=== PATIENT | male | born 1960 | race Caucasian/White ===

== ENCOUNTER 2017-04-17 15:32 | Emergency (ER) | payer BC, MEDICAID ==
--- NOTE | 2017-04-17 15:47 | EDM.PDOC ---
ED HPI GENERAL MEDICAL PROBLEM - General Chief Complaint: Neuro Symptoms/Deficits Stated Complaint: TINGLING FINGERTIP, R ARM NUMBNESS Time Seen by Provider: 04/17/17 15:36 - History of Present Illness INITIAL COMMENTS - FREE TEXT/NARRATIVE: 56-year-old male presents to the emergency room with right arm weakness. This started roughly an hour ago the patient got out of the shower noticed some tingling the tips of his right fingers this progressed to increasing weakness up his arm to the point that he can't do anything with his arm he thinks he has a little bit of right leg weakness. He had a headache but this went away the patient had some nausea and vomiting secondary to probable gastroenteritis viral etiology that improved Wednesday night. He has noticed a slight decrease in his speech. Otherwise he's been doing fairly well up until this point patient has multiple medical problems stemming from drinking too much and smoking too much he has advanced lung disease atherosclerotic cardiovascular disease congestive heart failure liver failure including cirrhosis and some sort of kidney disease. - Related Data Allergies Allergy/AdvReac Type Severity Reaction Status Date / Time amoxicillin Allergy Rash Verified 04/17/17 15:56 rosuvastatin calcium Allergy Numbness Verified 04/17/17 15:56 [From Crestor] spironolactone Allergy Rash Verified 04/17/17 15:57 Home Meds: Home Meds Albuterol Sulfate [Albuterol Sulfate HFA] 2 puff INH ASDIRECTED PRN 03/26/14 [ History] Allopurinol [Zyloprim] 300 mg PO DAILY 03/26/14 [History] Fluticasone/Salmeterol [Advair 250-50] 1 puff INH BID 03/26/14 [History] Sertraline [Zoloft] 100 mg PO DAILY 03/26/14 [History] busPIRone [Buspar] 10 mg PO BID 03/26/14 [History] Thiamine [Vitamin B-1] 100 mg PO DAILY #30 tablet 04/02/14 [Rx] Fluticasone/Salmeterol [Advair Diskus 250-50] 1 puff INH BID 12/13/15 [History] Furosemide [Lasix] 40 mg PO DAILY 12/13/15 [History] Aspirin [Lo-Dose Aspirin EC] 81 mg PO DAILY 04/17/17 [History] Eplerenone. 25 mg PO DAILY 04/17/17 [History] Folic Acid 1 mg PO DAILY 04/17/17 [History] Iron Slow Release. 45 mg PO DAILY 04/17/17 [History] Lactulose. 15 ml PO BID 04/17/17 [History] Pantoprazole Sodium 40 mg PO DAILY 04/17/17 [History] Rifaximin [Xifaxan] 550 mg PO BID 04/17/17 [History] Sertraline [Zoloft] 50 mg PO BEDTIME 04/17/17 [History] Past Medical History HEENT History: Reports: Impaired Vision Other HEENT History: wears glasses Cardiovascular History: Reports: Heart Failure, High Cholesterol, Hypertension Respiratory History: Reports: Asthma, COPD Genitourinary History: Reports: Other (See Below) Other Genitourinary History: has one kidney working-right one Musculoskeletal History: Reports: Back Pain, Chronic, Other (See Below) Other Musculoskeletal History: arhtiritis Psychiatric History: Reports: Anxiety, Depression Hematologic History: Reports: Hemochromatosis - Past Surgical History HEENT Surgical History: Reports: Oral Surgery Cardiovascular Surgical History: Reports: Coronary Artery Stent GI Surgical History: Reports: Colonoscopy, Hernia Repair/Other Musculoskeletal Surgical History: Reports: Other (See Below) Social & Family History - Tobacco Use Smoking Status *Q: Former Smoker Years of Tobacco use: 30 Used Tobacco, but Quit: Yes Month Tobacco Last Used: 4 Second Hand Smoke Exposure: No - Alcohol Use Days Per Week of Alcohol Use: 7 Number of Drinks Per Day: 3 Total Drinks Per Week: 21 - Recreational Drug Use Recreational Drug Use: No ED ROS GENERAL - Review of Systems Review Of Systems: See Below Constitutional: Reports: Weakness HEENT: Reports: No Symptoms Respiratory: Reports: Other (No acute changes she has chronic lung disease chronic cough and shortness of breath) Cardiovascular: Reports: Blood Pressure Problem, Dyspnea on Exertion. Denies: Chest Pain, Palpitations Endocrine: Reports: Other (Low testosterone) GI/Abdominal: Reports: No Symptoms. Denies: Abdominal Pain, Constipation, Diarrhea, Nausea, Vomiting : Reports: No Symptoms Musculoskeletal: Reports: No Symptoms Skin: Reports: No Symptoms Neurological: Reports: Headache, Numbness, Tingling, Difficulty Walking, Weakness. Denies: Seizure, Syncope Psychiatric: Reports: No Symptoms Hematologic/Lymphatic: Reports: No Symptoms Immunologic: Reports: No Symptoms ED EXAM, NEURO - Physical Exam Exam: See Below Exam Limited By: No Limitations General Appearance: Alert, No Apparent Distress Ears: Normal External Exam, Normal Canal, Hearing Grossly Normal, Normal TMs Nose: Normal Inspection, Normal Mucosa Throat/Mouth: Normal Inspection, Normal Oropharynx, No Airway Compromise Head Exam: Atraumatic, Normocephalic Neck: Normal Inspection, Supple, Non-Tender, Full Range of Motion. No: Lymphadenopathy (L), Lymphadenopathy (R) Respiratory/Chest: No Respiratory Distress, Normal Breath Sounds, No Accessory Muscle Use, Chest Non-Tender, Decreased Breath Sounds GI/Abdominal: Normal Bowel Sounds, Soft, Non-Tender Extremities: Other (Patient has marked weakness in his right arm he can lift it up a little bit but I think this is thoracic muscles taking over no bag maker strength at all his hand left side is normal lower extremity exam initially showed some diminished strength but this was very subtle and his right lower leg at the time of my last examination this was more pronounced but he can still lift his leg up against gravity.) Psychiatric: Normal Affect, Normal Mood Skin Exam: Warm, Dry, Intact Course - Vital Signs Last Recorded V/S: Last Vital Signs Temp 38.0 C 04/17/17 15:57 Pulse 106 H 04/17/17 16:36 Resp 18 04/17/17 15:57 BP 151/96 H 04/17/17 16:36 Pulse Ox 92 L 04/17/17 15:57 - Orders/Labs/Meds Orders: Active Orders 24 hr Category Date Time Status EKG Documentation Completion [RC] STAT Care 04/17/17 15:48 Active Chest 1V Frontal [CR] Stat Exams 04/17/17 15:48 Taken Head wo Cont [CT] Stat Exams 04/17/17 15:49 Taken Labs: Laboratory Tests 04/17/17 04/17/17 04/17/17 Range/Units 15:41 15:55 15:55 WBC 7.05 (4.23-9.07) K/mm3 RBC 5.36 (4.63-6.08) M/mm3 Hgb 15.0 (13.7-17.5) gm/L Hct 45.7 (40.1-51.0) % MCV 85.3 (79.0-92.2) fl MCH 28.0 (25.7-32.2) pg MCHC 32.8 (32.2-35.5) g/dl RDW Std Deviation 55.3 H (35.1-43.9) fL Plt Count 84 L (163-337) K/mm3 MPV 10.7 (9.4-12.3) fl Neutrophils % (Manual) 74 H (40-60) % Band Neutrophils % 1 (0-10) % Lymphocytes % (Manual) 16 L (20-40) % Atypical Lymphs % 0 % Monocytes % (Manual) 7 (2-10) % Eosinophils % (Manual) 1 (0.8-7.0) % Basophils % (Manual) 1 (0.2-1.2) Platelet Estimate See note RBC Morph Comment Normal PT 12.9 (8.0-13.0) SECONDS INR 1.17 APTT 31 (22-36) SECONDS Sodium (136-145) mEq/L Potassium (3.5-5.1) mEq/L Chloride (98-107) mEq/L Carbon Dioxide (21-32) mEq/L Anion Gap (5-15) BUN (7-18) mg/dL Creatinine (0.7-1.3) mg/dL Est Cr Clr Drug Dosing mL/min Estimated GFR (MDRD) (>60) mL/min BUN/Creatinine Ratio (14-18) Glucose (74-106) mg/dL POC Glucose 98 (70-105) mg/dL Calcium (8.5-10.1) mg/dL Total Bilirubin (0.2-1.0) mg/dL AST (15-37) U/L ALT (16-63) U/L Alkaline Phosphatase (46-116) U/L Ammonia (11-32) umol/L Troponin I (0.00-0.056) ng/mL Total Protein (6.4-8.2) g/dl Albumin (3.4-5.0) g/dl Globulin gm/dL Albumin/Globulin Ratio (1-2) 18 04/17/17 Range/Units 15:55 15:55 WBC (4.23-9.07) K/mm3 RBC (4.63-6.08) M/mm3 Hgb (13.7-17.5) gm/L Hct (40.1-51.0) % MCV (79.0-92.2) fl MCH (25.7-32.2) pg MCHC (32.2-35.5) g/dl RDW Std Deviation (35.1-43.9) fL Plt Count (163-337) K/mm3 MPV (9.4-12.3) fl Neutrophils % (Manual) (40-60) % Band Neutrophils % (0-10) % Lymphocytes % (Manual) (20-40) % Atypical Lymphs % % Monocytes % (Manual) (2-10) % Eosinophils % (Manual) (0.8-7.0) % Basophils % (Manual) (0.2-1.2) Platelet Estimate RBC Morph Comment PT (8.0-13.0) SECONDS INR APTT (22-36) SECONDS Sodium 136 (136-145) mEq/L Potassium 3.4 L (3.5-5.1) mEq/L Chloride 99 (98-107) mEq/L Carbon Dioxide 25 (21-32) mEq/L Anion Gap 15.4 H (5-15) BUN 9 (7-18) mg/dL Creatinine 0.9 (0.7-1.3) mg/dL Est Cr Clr Drug Dosing 95.76 mL/min Estimated GFR (MDRD) > 60 (>60) mL/min BUN/Creatinine Ratio 10.0 L (14-18) Glucose 100 (74-106) mg/dL POC Glucose (70-105) mg/dL Calcium 8.7 (8.5-10.1) mg/dL Total Bilirubin 2.9 H (0.2-1.0) mg/dL AST 81 H (15-37) U/L ALT 35 (16-63) U/L Alkaline Phosphatase 188 H (46-116) U/L Ammonia 51 H (11-32) umol/L Troponin I 0.019 (0.00-0.056) ng/mL Total Protein 8.3 H (6.4-8.2) g/dl Albumin 3.7 (3.4-5.0) g/dl Globulin 4.6 gm/dL Albumin/Globulin Ratio 0.8 L (1-2) Meds: Medications Discontinued Medications Generic Name Dose Route Start Last Admin Trade Name Freq PRN Reason Stop Dose Admin Labetalol HCl 5 mg 04/17/17 16:34 04/17/17 16:36 Normodyne IVPUSH 04/17/17 16:35 5 mg ONETIME ONE Administration Protocol Labetalol HCl Confirm 04/17/17 16:38 04/17/17 16:38 Normodyne Administered 04/17/17 16:39 Not Given Dose 100 mg .ROUTE .STK-MED ONE - Re-Assessments/Exams Free Text/Narrative Re-Assessment/Exam: 04/17/17 16:59 Patient was rapidly evaluated emergency room and taken to CT he was noted to have virtually no movement on his own of his right arm. He had very subtle weakness in his right lower extremity. His speech was slightly off over time his speech has deteriorated a little bit and his right leg is deteriorated his blood pressures initially ranged in the 150s or 160s this was reduced with IV labetalol. Since we had the CT result back which is fairly quickly it showed an obvious left parietal intraparenchymal hemorrhage. The radiologist also noted a small lesion in the right parietal area just inferior the is a mass of some sort. Platelet count 84,000 no other labs available at this particular time multiple labs pending at this point patient's case was discussed with Dr. Lomax neurosurgeon at [facility] in [place] who is kind enough to accept the patient prior to discussing the case with the physician in [facility] we activated [facility] who had to send a flight over from [place] however this did not slow us down to much the [facility] flight crew was out on a flight. Departure - Departure Time of Disposition: 16:20 Disposition: DC/Tfer to Acute Hospital 02 Clinical Impression: Hemorrhagic stroke - Discharge Information Referrals: Rafiq Sam MD [Primary Care Provider] - Forms: ED Department Discharge - My Orders Last 24 Hours: My Active Orders 04/17/17 15:48 EKG Documentation Completion [RC] STAT Chest 1V Frontal [CR] Stat 04/17/17 15:49 Head wo Cont [CT] Stat - Assessment/Plan Last 24 Hours: My Active Orders 04/17/17 15:48 EKG Documentation Completion [RC] STAT Chest 1V Frontal [CR] Stat 04/17/17 15:49 Head wo Cont [CT] Stat
[2017-04-17] MEDS ORDERED: Labetalol 100 MG/20 ML MDV IVPUSH ONE (16:34)
[2017-04-17 16:37] VITALS: BP 151/96
[2017-04-17] MEDS ORDERED: Labetalol 100 MG/20 ML MDV ONE (16:38)
--- NOTE | 2017-04-18 12:54 | CR ---
Chest: Portable view of the chest was obtained. Comparison: Previous chest x-ray of 12/13/15. Heart size and mediastinum are normal. Lungs are clear. Bony structures are grossly intact. Impression: 1. Nothing acute is identified on portable chest x-ray. Diagnostic code #1
--- NOTE | 2017-04-18 12:54 | CT ---
Head CT Technique: Multiple axial sections through the brain were obtained. Intravenous contrast was not utilized. Comparison: No prior intracranial imaging. Findings: Parenchymal hemorrhage is identified within the upper left parietal region. Parenchymal hemorrhage measures about 4.5 cm in greatest dimension. Small amount of surrounding low density is seen. This hemorrhage causes mild localized mass effect. Rounded low density area seen within the cortex of the posterior right parietal region measuring approximately 1.3 cm. Ventricles along with basal cisterns and sulci over the convexities are mildly prominent. No midline shift is seen. No other abnormal parenchymal densities are seen. Bone window settings were reviewed which show no acute calvarial abnormality. Visualized sinuses are clear. Impression: 1. Acute parenchymal hemorrhage within the upper left parietal region. Additional nonhemorrhagic low-density area seen within the cortex of the right parietal region. Findings may represent hemorrhagic infarct and old nonhemorrhagic infarct. MRI recommended with contrast to exclude the possibility of metastasis. 2. Mild generalized atrophy. Diagnostic code #9 I agree with preliminary report issued by [facility] ([facility] preliminary report dictated on 04/17/17, 5:09 PM Central Time)
== END 2017-04-17 17:03 ==
LOC: JD.ED 15:32
DX: I62.9 Nontraumatic intracranial hemorrhage, unspecified (principal); I11.0 Hypertensive heart disease with heart failure; I50.9 Heart failure, unspecified; E78.00 Pure hypercholesterolemia, unspecified; Z88.8 Allergy status to other drugs, medicaments and biological substances; Z88.1 Allergy status to other antibiotic agents; Z79.899 Other long term (current) drug therapy; Z79.82 Long term (current) use of aspirin; Z87.891 Personal history of nicotine dependence
CPT/HCPCS: 36415; 51702; 70450; 71045; 80053; 82140; 82962; 84484; 85025; 85610; 85730; 93005; 96374; 99285; G0480

== ENCOUNTER 2019-01-05 08:43 | Emergency (ER) | payer MEDICARE, BC ==
[2019-01-05 08:53] VITALS: BP 106/75; PULSE 94
--- NOTE | 2019-01-05 10:03 | EDM.PDOC ---
ED HPI GENERAL MEDICAL PROBLEM - General Chief Complaint: Gastrointestinal Problem Stated Complaint: [facility] Time Seen by Provider: 01/05/19 08:57 Source of Information: Reports: Patient, RN Notes Reviewed - History of Present Illness INITIAL COMMENTS - FREE TEXT/NARRATIVE: 58-year-old male with history of liver failure, ascites. On his way to [place] to have paracentesis. The pain with sitting and traveling became too uncomfortable for him. He and his stopped, [facility] was called and he was transported here without further incident. He did have labs drawn at the clinic yesterday. We have sent for those and those have been faxed over to us available for review. At this time lying on the clot the pain is gone. He states his discomfort is mainly with sitting [place] in the bumps driving also made the discomfort worse. Been vomiting. Poor appetite. He has been drinking some fluids. No recent fever or chills. No chest pain or difficulty breathing at this time. Abdomen Pain Score (Numeric/FACES): 10 - Related Data Allergies Allergy/AdvReac Type Severity Reaction Status Date / Time amoxicillin Allergy Rash Verified 04/17/17 15:56 rosuvastatin calcium Allergy Numbness Verified 04/17/17 15:56 [From Crestor] spironolactone Allergy Rash Verified 04/17/17 15:57 Home Meds: Home Meds Albuterol Sulfate [Albuterol Sulfate HFA] 2 puff INH ASDIRECTED PRN 03/26/14 [ History] Allopurinol [Zyloprim] 300 mg PO DAILY 03/26/14 [History] Sertraline [Zoloft] 100 mg PO DAILY 03/26/14 [History] busPIRone [Buspar] 10 mg PO BID 03/26/14 [History] Fluticasone/Salmeterol [Advair Diskus 250-50] 1 puff INH DAILY 12/13/15 [History ] Furosemide [Lasix] 80 mg PO BID 12/13/15 [History] Eplerenone. 50 mg PO DAILY 04/17/17 [History] Lactulose. 15 ml PO TID 04/17/17 [History] Pantoprazole Sodium 40 mg PO DAILY 04/17/17 [History] Rifaximin [Xifaxan] 550 mg PO BID 04/17/17 [History] Nitroglycerin 0.4 mg SL Q5M PRN 01/05/19 [History] Potassium Chloride 10 meq PO DAILY 01/05/19 [History] Vitamin B Complex [B Complex] 1 tab PO DAILY 01/05/19 [History] traMADol [Ultram] 50 mg PO Q6H PRN 01/05/19 [History] Past Medical History HEENT History: Reports: Impaired Vision Other HEENT History: wears glasses Cardiovascular History: Reports: Heart Failure, High Cholesterol, Hypertension Respiratory History: Reports: Asthma, COPD Genitourinary History: Reports: Other (See Below) Other Genitourinary History: has one kidney working-right one Musculoskeletal History: Reports: Back Pain, Chronic, Other (See Below) Other Musculoskeletal History: arhtiritis Psychiatric History: Reports: Anxiety, Depression Hematologic History: Reports: Hemochromatosis - Past Surgical History HEENT Surgical History: Reports: Oral Surgery Cardiovascular Surgical History: Reports: Coronary Artery Stent GI Surgical History: Reports: Colonoscopy, Hernia Repair/Other Musculoskeletal Surgical History: Reports: Other (See Below) ED ROS GENERAL - Review of Systems Review Of Systems: See Below Constitutional: Denies: Fever, Chills, Diaphoresis HEENT: Reports: Other (Mouth feels dry). Denies: Throat Pain Respiratory: Reports: Shortness of Breath (Especially with walking) Cardiovascular: Denies: Chest Pain GI/Abdominal: Reports: Abdominal Pain (He was having moderate abdominal discomfort worse with sitting and driving, now gone while lying flat), Decreased Appetite (He has not been eating well). Denies: Nausea, Vomiting Musculoskeletal: Reports: Back Pain (Mild chronic). Denies: Shoulder Pain, Arm Pain Skin: Denies: Rash ED EXAM, GI/ABD - Physical Exam Exam: See Below General Appearance: Alert Eyes: Bilateral: Normal Appearance Head: Atraumatic. No: Facial Swelling Neck: Supple Respiratory/Chest: No Respiratory Distress, Lungs Clear, Normal Breath Sounds Cardiovascular: Regular Rate, Rhythm GI/Abdominal Exam: Distended (Abdomen is quite distended, has fluid wave consistent with large amount ascites), Tender (Very mild diffuse tenderness) Back Exam: No: CVA Tenderness (L), CVA Tenderness (R) Extremities: Normal Inspection, Normal Range of Motion Neurological: Alert, Oriented, No Motor/Sensory Deficits Skin Exam: Warm, Dry Course - Vital Signs Last Recorded V/S: Last Vital Signs Temp 97.7 F 01/05/19 08:48 Pulse 94 01/05/19 08:48 Resp 16 01/05/19 08:48 BP 106/75 01/05/19 08:48 Pulse Ox 100 01/05/19 08:48 - Orders/Labs/Meds Orders: Active Orders 24 hr Category Date Time Status CULTURE BODY FLUID + SMEAR [RM] Stat Lab 01/05/19 18:13 Ordered Meds: Medications Discontinued Medications Generic Name Dose Route Start Last Admin Trade Name Butch PRN Reason Stop Dose Admin Albumin Human 25 gm in 100 mls @ 100 mls/hr 01/05/19 17:55 01/05/19 18:02 Flexbumin 25% IV 01/05/19 18:54 100 mls/hr ONETIME ONE Administration Albumin Human Confirm 01/05/19 18:03 Flexbumin 25% Administered 01/05/19 18:04 Dose 50 mls @ as directed .ROUTE .STK-MED ONE Albumin Human 12.5 gm in 50 mls @ 100 mls/hr 01/05/19 18:59 01/05/19 19:15 Flexbumin 25% IV 01/05/19 19:28 100 mls/hr ONETIME ONE Administration - Re-Assessments/Exams Free Text/Narrative Re-Assessment/Exam: 01/05/[address] Gregorio, General Surgeon healthcare receptionist. He has clinic today and also a surgical case a 1 PM, he will come do the thorocentesis around 15:00 once he completes the surgical case. I did review the labs drawn at the clinic yesterday and white blood count was good, platelets 97,000 hemoglobin 12.5 ammonia mildly elevated at 58, chemistries all relatively good. 01/05/19 19:25. Dr Gregorio has taken multiple bottles of fluid off of his abd, has ordered a culture. Patient feels much better, abd no longer distended, receiving 2nd bottle of albumen. He has an appt. to see Dr Sam Wednesday. Discharge instr. as documented. Departure - Departure Time of Disposition: 18:10 Disposition: Home, Self-Care 01 Condition: Poor Clinical Impression: Ascites Qualifiers: Ascites type: other type Qualified Code(s): R18.8 - Other ascites - Discharge Information Referrals: Rafiq Sam MD [Primary Care Provider] - Forms: ED Department Discharge Additional Instructions: Rest, continue current medications as prescribed, see Dr. Sam Wednesday as planned, return to ED as needed if symptoms worsening in any way.
[2019-01-05] MEDS ORDERED: Albumin 25% 50 ML ONE (18:03)
[2019-01-05] MEDS ORDERED: Albumin 25% 12.5 GM/50 ML BAG IV ONE (18:59)
--- NOTE | 2019-01-05 19:55 | PROC ---
DATE OF OPERATION: 01/05/2019 SURGEON: Arnie Gregorio MD OPERATION PERFORMED: 1. Bedside abdominal ultrasound for ascites 2. Paracentesis. PREOPERATIVE DIAGNOSIS: Chronic ascites. INDICATIONS AND CONSENT: The patient is a 58-year-old with known chronic liver failure. The patient gets paracentesis every week, where 7-8 L are removed from the abdomen. The patient was due for paracentesis today and was on his way to [place] for another paracentesis, but the patient had a severe abdominal pain on the way, necessitating return and emergent stop to the emergency room today. I was consulted to see the patient. I saw the patient and I offered him paracentesis. The patient agreed to proceed with the procedure. Risks were discussed and informed consent was obtained. Benefits and alternatives were also discussed with the patient. DETAILS OF PROCEDURE: The patient was placed in a supine position and quick abdominal ultrasound was performed and we located the right lower quadrant as the best place to perform paracentesis because of the distance between the fluid cavity and the bowel. A paracentesis kit was brought into the field. The area was prepped and draped in the usual sterile fashion and a time-out was performed. Next, marked area in the right lower quadrant was anesthetized with local anesthetic consisting of 1% lidocaine with epinephrine and then the standard paracentesis catheter over the needle was advanced until the ascites was aspirated, then the catheter was advanced while withdrawing the needle and then fluid was aspirated about 60 mL. Then, 6 L of ascites were drained into vacuum containers and samples were sent for laboratory analysis and current cultures. The patient tolerated the procedure well. At the end of the procedure, the catheter was removed and Dermabond applied at the puncture site. No immediate complications. The patient received 35 mg of albumin replacement and will be observed in the emergency room for stability and discharge home today. MMODAL /[id number] JAME
== END 2019-01-05 20:25 | disposition home or self-care (01) ==
LOC: JD.ED 08:43
DX: R18.8 Other ascites (principal); I10 Essential (primary) hypertension; E78.5 Hyperlipidemia, unspecified; J44.9 Chronic obstructive pulmonary disease, unspecified; F41.9 Anxiety disorder, unspecified; F32.9 Major depressive disorder, single episode, unspecified; Z88.8 Allergy status to other drugs, medicaments and biological substances; Z79.51 Long term (current) use of inhaled steroids; Z79.899 Other long term (current) drug therapy; Z88.1 Allergy status to other antibiotic agents
CPT/HCPCS: 49083; 82945; 83615; 84157; 87070; 87205; 89050; 96365; 96366; 99285; P9047; 99283

== ENCOUNTER 2019-01-09 10:53 | Inpatient (IN) | payer MEDICARE, BC ==
[2019-01-09] MEDS ORDERED: Sodium Chloride 0.9% 10 ML Syringe FLUSH PRN (11:48)
--- NOTE | 2019-01-09 13:26 | EDM.PDOC ---
ED HPI GENERAL MEDICAL PROBLEM - General Chief Complaint: Abdominal Pain Stated Complaint: ABDOMINAL ISSUES SENT BY DR DIXON Time Seen by Provider: 01/09/19 11:17 Source of Information: Reports: Patient, RN Notes Reviewed - History of Present Illness INITIAL COMMENTS - FREE TEXT/NARRATIVE: 58-year-old male with history of liver failure, ascites that has been getting weekly paracentesis for recurrent ascites. Last Here in the ED 4 days ago. Visit at the clinic today with his primary physician, Dr. Dixon is noted having increasing pain erythema of the right lower abdomen and right flank which seems to be centered around areaof previous tap right lower anterior abdomen. He does have chronic dyspnea but that is not worse than usual. At rest abdominal discomfort is quite minimal, pain is worse with motion and especially walking. He is not aware of fever or chills. No nausea or vomiting. Abdominal Pain Score (Numeric/FACES): 6 - Related Data Allergies Allergy/AdvReac Type Severity Reaction Status Date / Time amoxicillin Allergy Rash Verified 01/09/19 16:36 rosuvastatin calcium Allergy Numbness Verified 01/09/19 16:36 [From Crestor] spironolactone Allergy Rash Verified 01/09/19 16:36 Home Meds: Home Meds Albuterol Sulfate [Albuterol Sulfate HFA] 2 puff INH BID PRN 03/26/14 [History] Allopurinol [Zyloprim] 300 mg PO DAILY 03/26/14 [History] Sertraline [Zoloft] 100 mg PO DAILY 03/26/14 [History] busPIRone [Buspar] 10 mg PO BID 03/26/14 [History] Furosemide [Lasix] 40 mg PO BID 12/13/15 [History] Eplerenone. 25 mg PO BID 04/17/17 [History] Pantoprazole Sodium 40 mg PO DAILY 04/17/17 [History] Rifaximin [Xifaxan] 550 mg PO BID 04/17/17 [History] Nitroglycerin 0.4 mg SL Q5M PRN 01/05/19 [History] Potassium Chloride 10 meq PO DAILY 01/05/19 [History] Vitamin B Complex [B Complex] 1 tab PO DAILY 01/05/19 [History] traMADol [Ultram] 50 mg PO Q6H PRN 09/26/19 [History] Fluticasone/Vilanterol [Breo Ellipta 100-25 MCG Inhalation Kit] 1 puff INH DAILY 01/09/19 [History] Lactulose 10 gm PO TID 01/09/19 [History] Past Medical History HEENT History: Reports: Impaired Vision Other HEENT History: wears glasses Cardiovascular History: Reports: Heart Failure, High Cholesterol, Hypertension Respiratory History: Reports: Asthma, COPD Gastrointestinal History: Reports: Jaundice, Other (See Below) Other Gastrointestinal History: chronic liver failure Genitourinary History: Reports: Other (See Below) Other Genitourinary History: has one kidney working-right one Musculoskeletal History: Reports: Back Pain, Chronic, Other (See Below) Other Musculoskeletal History: arhtiritis Psychiatric History: Reports: Anxiety, Depression Hematologic History: Reports: Hemochromatosis - Past Surgical History HEENT Surgical History: Reports: Oral Surgery Cardiovascular Surgical History: Reports: Coronary Artery Stent GI Surgical History: Reports: Colonoscopy, Hernia Repair/Other Musculoskeletal Surgical History: Reports: Other (See Below) Social & Family History - Family History Family Medical History: Noncontributory - Tobacco Use Smoking Status *Q: Never Smoker - Caffeine Use Caffeine Use: Reports: None ED ROS GENERAL - Review of Systems Review Of Systems: See Below Constitutional: Denies: Fever, Chills HEENT: Denies: Throat Pain Respiratory: Denies: Shortness of Breath Cardiovascular: Denies: Chest Pain GI/Abdominal: Reports: Abdominal Pain, Distension Musculoskeletal: Denies: Leg Pain Skin: Reports: Erythema (Right flank and right lower abdomen) Neurological: Reports: Weakness (Generalized). Denies: Headache, Trouble Speaking ED EXAM, GI/ABD - Physical Exam Exam: See Below General Appearance: Alert, No Apparent Distress Eyes: Bilateral: Pale Conjunctiva (Very mild scleral icterus) Throat/Mouth: Normal Inspection Head: Atraumatic. No: Facial Swelling Neck: Supple, Other (No JVD) Respiratory/Chest: No Respiratory Distress, Lungs Clear, Normal Breath Sounds Cardiovascular: Regular Rate, Rhythm GI/Abdominal Exam: Distended (Mild), Tender (Mild diffuse tenderness more so right lower abdomen), Other (Mild fluid wave present compatible and suggestive for mild recurrent ascites). No: Guarding, Rebound Back Exam: CVA Tenderness (R) (Mild) Extremities: No: Leg Pain, Increased Warmth, Redness Neurological: Alert, No Motor/Sensory Deficits Skin Exam: Warm, Dry Course - Vital Signs Last Recorded V/S: Last Vital Signs Temp 98.1 F 01/09/19 11:02 Pulse 87 01/09/19 15:37 Resp 14 01/09/19 15:37 BP 92/54 L 01/09/19 15:37 Pulse Ox 100 01/09/19 15:37 - Orders/Labs/Meds Orders: Active Orders 24 hr Category Date Time Status Admission Status [Patient Status] [ADT] Routine ADT 01/09/19 14:45 Active Peripheral IV Care [RC] Q2HR Care 01/09/19 11:49 Active CULTURE BLOOD [BC] Stat Lab 01/09/19 11:35 Received CULTURE BLOOD [BC] Stat Lab 01/09/19 11:35 Received Sodium Chloride 0.9% [Saline Flush] Med 01/09/19 11:48 Active 10 ml FLUSH ASDIRECTED PRN Peripheral IV Insertion Adult [OM.PC] Stat Oth 01/09/19 11:49 Ordered Medication Orders Albuterol (Proventil Hfa) 0 gm INH BIDRT PRN PRN Reason: Shortness of Breath Allopurinol (Zyloprim) 300 mg PO DAILY HO Buspirone HCl (Buspar) 10 mg PO BID HO Furosemide (Lasix) 40 mg PO BID@0900,1500 HO Vancomycin HCl 1.25 gm/ Sodium (Chloride) 250 mls @ 166.667 mls/hr IV Q12H HO Lactated Ringer's (Ringers, Lactated) 500 mls @ 250 mls/hr IV ONETIME ONE Stop: 01/09/19 19:59 Last Admin: 01/09/19 17:56 Dose: 250 mls/hr Ceftriaxone Sodium 2 gm/ (Sodium Chloride) 100 mls @ 200 mls/hr IV Q24H HO Lactulose (Cephulac) 10 gm PO TID HO Mometasone Furoate/Formoterol Fumar (Dulera 100-5 Mcg) 0 puff IH BIDRT HO Nitroglycerin (Nitrostat) 0.4 mg SL Q5M PRN PRN Reason: Chest Pain Non-Formulary Medication (Eplerenone.) 25 mg PO BID HO Pantoprazole Sodium (Protonix) 40 mg PO DAILY@0700 HO Potassium Chloride (Klor-Con 10) 10 meq PO DAILY HO Rifaximin (Xifaxan) 550 mg PO BID [facility] Sertraline HCl (Zoloft) 100 mg PO DAILY [facility] Sodium Chloride (Saline Flush) 10 ml FLUSH ASDIRECTED PRN PRN Reason: Keep Vein Open Last Admin: 01/09/19 12:32 Dose: 10 ml Tramadol HCl (Ultram) 50 mg PO Q6H PRN PRN Reason: Pain Vancomycin HCl (Pharmacy To Dose - Vancomycin) 1 dose .XX ASDIRECTED [facility] Labs: Laboratory Tests 01/09/19 01/09/19 01/09/19 Range/Units 11:35 11:35 11:37 WBC 6.30 (4.23-9.07) K/mm3 RBC 3.66 L (4.63-6.08) M/mm3 Hgb 12.4 L D (13.7-17.5) gm/dl Hct 36.6 L (40.1-51.0) % MCV 100.0 H D (79.0-92.2) fl MCH 33.9 H (25.7-32.2) pg MCHC 33.9 (32.2-35.5) g/dl RDW Std Deviation 56.4 H (35.1-43.9) fL Plt Count 97 L (163-337) K/mm3 MPV 10.3 (9.4-12.3) fl Neutrophils % (Manual) 70 H (40-60) % Band Neutrophils % 0 (0-10) % Lymphocytes % (Manual) 9 L (20-40) % Atypical Lymphs % 0 % Monocytes % (Manual) 18 H (2-10) % Eosinophils % (Manual) 3 (0.8-7.0) % Basophils % (Manual) 0 L (0.2-1.2) Platelet Estimate Decreased RBC Morph Comment Normal Sodium 133 L (136-145) mEq/L Potassium 4.2 (3.5-5.1) mEq/L Chloride 98 (98-107) mEq/L Carbon Dioxide 29 (21-32) mEq/L Anion Gap 10.2 (5-15) BUN 15 (7-18) mg/dL Creatinine 0.8 (0.7-1.3) mg/dL Est Cr Clr Drug Dosing 105.19 mL/min Estimated GFR (MDRD) > 60 (>60) mL/min BUN/Creatinine Ratio 18.8 H (14-18) Glucose 113 H (74-106) mg/dL Lactic Acid (0.4-2.0) mmol/L Calcium 8.8 (8.5-10.1) mg/dL Total Bilirubin 6.6 H (0.2-1.0) mg/dL AST 37 (15-37) U/L ALT 26 (16-63) U/L Alkaline Phosphatase 106 (46-116) U/L C-Reactive Protein 1.3 H* (<1.0) mg/dL Total Protein 6.0 L (6.4-8.2) g/dl Albumin 2.9 L (3.4-5.0) g/dl Globulin 3.1 gm/dL Albumin/Globulin Ratio 0.9 L (1-2) 01/09/19 Range/Units 11:37 WBC (4.23-9.07) K/mm3 RBC (4.63-6.08) M/mm3 Hgb (13.7-17.5) gm/dl Hct (40.1-51.0) % MCV (79.0-92.2) fl MCH (25.7-32.2) pg MCHC (32.2-35.5) g/dl RDW Std Deviation (35.1-43.9) fL Plt Count (163-337) K/mm3 MPV (9.4-12.3) fl Neutrophils % (Manual) (40-60) % Band Neutrophils % (0-10) % Lymphocytes % (Manual) (20-40) % Atypical Lymphs % % Monocytes % (Manual) (2-10) % Eosinophils % (Manual) (0.8-7.0) % Basophils % (Manual) (0.2-1.2) Platelet Estimate RBC Morph Comment Sodium (136-145) mEq/L Potassium (3.5-5.1) mEq/L Chloride (98-107) mEq/L Carbon Dioxide (21-32) mEq/L Anion Gap (5-15) BUN (7-18) mg/dL Creatinine (0.7-1.3) mg/dL Est Cr Clr Drug Dosing mL/min Estimated GFR (MDRD) (>60) mL/min BUN/Creatinine Ratio (14-18) Glucose (74-106) mg/dL Lactic Acid 2.2 H (0.4-2.0) mmol/L Calcium (8.5-10.1) mg/dL Total Bilirubin (0.2-1.0) mg/dL AST (15-37) U/L ALT (16-63) U/L Alkaline Phosphatase (46-116) U/L C-Reactive Protein (<1.0) mg/dL Total Protein (6.4-8.2) g/dl Albumin (3.4-5.0) g/dl Globulin gm/dL Albumin/Globulin Ratio (1-2) Meds: Medications Generic Name Dose Route Start Last Admin Trade Name Freq PRN Reason Stop Dose Admin Albuterol 0 gm 01/09/19 17:13 Proventil Hfa INH BIDRT PRN Shortness of Breath Allopurinol 300 mg 01/10/19 09:00 Zyloprim PO DAILY HO Buspirone HCl 10 mg 01/09/19 21:00 Buspar PO BID HO Furosemide 40 mg 01/10/19 09:00 Lasix PO BID@0900,1500 [facility] Vancomycin HCl 1.25 gm/ Sodium 250 mls @ 166.667 mls/hr 01/10/19 02:00 Chloride IV Q12H HO Lactated Ringer's 500 mls @ 250 mls/hr 01/09/19 18:00 01/09/19 17:56 Ringers, Lactated IV 01/09/19 19:59 250 mls/hr ONETIME ONE Administration Ceftriaxone Sodium 2 gm/ 100 mls @ 200 mls/hr 01/10/19 13:00 Sodium Chloride IV Q24H HO Lactulose 10 gm 01/09/19 21:00 Cephulac PO TID HO Mometasone Furoate/Formoterol Fumar 0 puff 01/10/19 06:00 Dulera 100-5 Mcg IH BIDRT [facility] Nitroglycerin 0.4 mg 01/09/19 17:13 Nitrostat SL Q5M PRN Chest Pain Non-Formulary Medication 25 mg 01/09/19 21:00 Eplerenone. PO BID HO Pantoprazole Sodium 40 mg 01/10/19 07:00 Protonix PO DAILY@0700 [facility] Potassium Chloride 10 meq 01/10/19 09:00 Klor-Con 10 PO DAILY [facility] Rifaximin 550 mg 01/09/19 21:00 Xifaxan PO BID HO Sertraline HCl 100 mg 01/10/19 09:00 Zoloft PO DAILY [facility] Sodium Chloride 10 ml 01/09/19 11:48 01/09/19 12:32 Saline Flush FLUSH 10 ml ASDIRECTED PRN Administration Keep Vein Open Tramadol HCl 50 mg 01/09/19 17:13 Ultram PO Q6H PRN Pain Vancomycin HCl 1 dose 01/09/19 16:00 Pharmacy To Dose - Vancomycin .XX ASDIRECTED [facility] Discontinued Medications Generic Name Dose Route Start Last Admin Trade Name Freq PRN Reason Stop Dose Admin Ceftriaxone Sodium 2 gm/ 100 mls @ 200 mls/hr 01/09/19 13:46 01/09/19 13:58 Sodium Chloride IV 01/09/19 14:15 200 mls/hr Q24H ONE Administration Vancomycin HCl 1.5 gm/ Sodium 500 mls @ 250 mls/hr 01/09/19 14:32 01/09/19 15 :47 Chloride IV 01/09/19 14:33 250 mls/hr ONETIME ONE Administration - Re-Assessments/Exams Free Text/Narrative Re-Assessment/Exam: 01/09/19 17:48 Dr Gregorio did see patient and did not feel that he needed or should have repeat peritoneal tap today based on current sx and findings. He is afebrile today, culture of ascites fluid was done 4 days ago and that has been negative for any type of growth. His WBC today is good with no left shift. CRP is 1.3, only slighty elevated. Patient did not meet sepsis alert criteria on initial evaluation. I did add a lactic acid after initial workup which I just had a chance to review a few minutes ago. It did come back very mildly elevated at 2.2. Patient was admitted a couple of hours ago. I will leave decision for follow up lactic acids to admitting provider, Dr. Prieto. Blood cultures 2 were drawn before IV antibiotics ordered. Departure - Departure Time of Disposition: 15:15 Disposition: Admitted As Inpatient 67 Condition: Serious Clinical Impression: Cellulitis, Chronic liver failure Ascites Qualifiers: Ascites type: other type Qualified Code(s): R18.8 - Other ascites - Discharge Information - My Orders Last 24 Hours: My Active Orders 01/09/19 11:35 CULTURE BLOOD [BC] Stat CULTURE BLOOD [BC] Stat 01/09/19 11:48 Sodium Chloride 0.9% [Saline Flush] 10 ml FLUSH ASDIRECTED PRN 01/09/19 11:49 Peripheral IV Care [RC] Q2HR Peripheral IV Insertion Adult [OM.PC] Stat 01/09/19 14:45 Admission Status [Patient Status] [ADT] Routine - Assessment/Plan Last 24 Hours: My Active Orders 01/09/19 11:35 CULTURE BLOOD [BC] Stat CULTURE BLOOD [BC] Stat 01/09/19 11:48 Sodium Chloride 0.9% [Saline Flush] 10 ml FLUSH ASDIRECTED PRN 01/09/19 11:49 Peripheral IV Care [RC] Q2HR Peripheral IV Insertion Adult [OM.PC] Stat 01/09/19 14:45 Admission Status [Patient Status] [ADT] Routine
[2019-01-09] MEDS ORDERED: cefTRIAXone 2 GM in Sodium Chloride 0.9% 100 ML IV ONE (13:46)
--- NOTE | 2019-01-09 13:54 | PCM.CONSN ---
- General Info Date of Service: 01/09/19 Admission Dx/Problem (Free Text): Cellulitis Subjective Update: Patient had paracentesis on 01/05/2019 and presented today to Dr. Clemons with cellulitis around the paracentesis site. Patient ensorses pain around tat area but denies increased abdominal pain, nausea or vomiting. He denies fevers, chills, SOB. He was asked to come to the ED for IV antibiotics. Functional Status: Reports: Pain Controlled - Review of Systems General: Reports: No Symptoms HEENT: Reports: No Symptoms Pulmonary: Reports: No Symptoms Cardiovascular: Reports: No Symptoms Gastrointestinal: Reports: Abdominal Pain, Other (RLQ cellulitis) Genitourinary: Reports: No Symptoms Musculoskeletal: Reports: No Symptoms Skin: Reports: No Symptoms, Other (RLQ abdominal cellulitis) - Patient Data Vitals - Most Recent: Last Vital Signs Temp 98.1 F 01/09/19 11:02 Pulse 88 01/09/19 11:02 Resp 16 01/09/19 11:02 BP 113/74 01/09/19 11:02 Pulse Ox 99 01/09/19 11:02 Weight - Most Recent: 89.358 kg Lab Results Last 24 Hours: Laboratory Results - last 24 hr 01/09/19 01/09/19 01/09/19 Range/Units 11:35 11:35 11:37 WBC 6.30 (4.23-9.07) K/mm3 RBC 3.66 L (4.63-6.08) M/mm3 Hgb 12.4 L D (13.7-17.5) gm/dl Hct 36.6 L (40.1-51.0) % MCV 100.0 H D (79.0-92.2) fl MCH 33.9 H (25.7-32.2) pg MCHC 33.9 (32.2-35.5) g/dl RDW Std Deviation 56.4 H (35.1-43.9) fL Plt Count 97 L (163-337) K/mm3 MPV 10.3 (9.4-12.3) fl Neutrophils % (Manual) 70 H (40-60) % Band Neutrophils % 0 (0-10) % Lymphocytes % (Manual) 9 L (20-40) % Atypical Lymphs % 0 % Monocytes % (Manual) 18 H (2-10) % Eosinophils % (Manual) 3 (0.8-7.0) % Basophils % (Manual) 0 L (0.2-1.2) Platelet Estimate Decreased RBC Morph Comment Normal Sodium 133 L (136-145) mEq/L Potassium 4.2 (3.5-5.1) mEq/L Chloride 98 (98-107) mEq/L Carbon Dioxide 29 (21-32) mEq/L Anion Gap 10.2 (5-15) BUN 15 (7-18) mg/dL Creatinine 0.8 (0.7-1.3) mg/dL Est Cr Clr Drug Dosing 105.19 mL/min Estimated GFR (MDRD) > 60 (>60) mL/min BUN/Creatinine Ratio 18.8 H (14-18) Glucose 113 H (74-106) mg/dL Calcium 8.8 (8.5-10.1) mg/dL Total Bilirubin 6.6 H (0.2-1.0) mg/dL AST 37 (15-37) U/L ALT 26 (16-63) U/L Alkaline Phosphatase 106 (46-116) U/L C-Reactive Protein 1.3 H* (<1.0) mg/dL Total Protein 6.0 L (6.4-8.2) g/dl Albumin 2.9 L (3.4-5.0) g/dl Globulin 3.1 gm/dL Albumin/Globulin Ratio 0.9 L (1-2) Med Orders - Current: Current Medications Ceftriaxone Sodium 2 gm/ (Sodium Chloride) 100 mls @ 200 mls/hr IV Q24H ONE Stop: 01/09/19 14:15 Sodium Chloride (Saline Flush) 10 ml FLUSH ASDIRECTED PRN PRN Reason: Keep Vein Open Last Admin: 01/09/19 12:32 Dose: 10 ml - Exam General: Alert, Oriented, Cooperative HEENT: Pupils Equal, Pupils Reactive Lungs: Clear to Auscultation, Normal Respiratory Effort Cardiovascular: Regular Rate, Regular Rhythm GI/Abdominal Exam: Soft, No Distention, No Mass, Tender (at the cellulitic area in the RLQ. No rebound tenderness. rest of the abdomen is nontender. No rebound or guarding) Consult PN Assessment/Plan Procedures: Procedures ABD PARACENTESIS W/IMAGING (01/05/19) ASSAY OF AMMONIA (04/17/17) ASSAY OF PROTEIN OTHER (01/05/19) ASSAY OF TROPONIN QUANT (04/17/17) BODY FLUID CELL COUNT (01/05/19) CARDIOVASCULAR STRESS TEST (12/13/15) CHEST X-RAY 1 VIEW FRONTAL (12/13/15) COMPLETE CBC W/AUTO DIFF WBC (04/17/17) COMPREHEN METABOLIC PANEL (04/17/17) CONTROL OF NOSEBLEED (12/19/15) CT HEAD/BRAIN W/O DYE (04/17/17) CULTURE OTHR SPECIMN AEROBIC (01/05/19) ELECTROCARDIOGRAM TRACING (04/17/17) EMERGENCY DEPT VISIT (01/05/19) EMERGENCY DEPT VISIT (12/19/15) EMERGENCY DEPT VISIT (12/13/15) GLUCOSE BLOOD TEST (04/17/17) GLUCOSE OTHER FLUID (01/05/19) HT MUSCLE IMAGE SPECT MULT (12/13/15) INSERT TEMP BLADDER CATH (04/17/17) LACTATE (LD) (LDH) ENZYME (01/05/19) PROTHROMBIN TIME (04/17/17) ROUTINE VENIPUNCTURE (04/17/17) SMEAR GRAM STAIN (01/05/19) THER/DIAG CONCURRENT INF (12/13/15) THER/PROPH/DIAG INJ IV PUSH (04/17/17) THER/PROPH/DIAG IV INF ADDON (01/05/19) THER/PROPH/DIAG IV INF INIT (01/05/19) THROMBOPLASTIN TIME PARTIAL (04/17/17) X-RAY EXAM CHEST 1 VIEW (04/17/17) Problem List Initiated/Reviewed/Updated: No Plan: Cellulitis around the site of prior paracentesis. No generalized abdominal pain. I agree with admission for IV antibiotics to cover Gi and skin husam. Diagnostic paracentesis is not indicated at this time due to lack of new intraabdominal symptoms.
[2019-01-09] MEDS ORDERED: Vancomycin 1.5 GM in Sodium Chloride 0.9% 500 ML IV ONE (14:32)
[2019-01-09] MEDS ORDERED: Nitroglycerin 0.4 MG Tab.SL SL PRN (17:13)
[2019-01-09] MEDS ORDERED: Albuterol 6.7 GM Inhaler INH PRN (17:13)
[2019-01-09] MEDS ORDERED: traMADol 50 MG Tab PO PRN (17:13)
--- NOTE | 2019-01-09 17:17 | PCM.HP.2 ---
H&P History of Present Illness - General Date of Service: 01/09/19 Admit Problem/Dx: Cellulitis - History of Present Illness Initial Comments - Free Text/Narative: 58-year-old male with end-stage liver disease who gets weekly paracentesis presented to his primary care physician, Dr. Sma, with right lower abdominal pain, erythema, and tenderness. Last he had paracentesis done on that right side and starting Wednesday night became red and painful. Dr. Sam was concerned enough to send him to the emergency room for further evaluation. Patient denies any fever, chills, night sweats, change in stools, nausea or vomiting. He does state that bending over or even the bed shaking will make the pain worse on the right side. In the emergency room the on-call surgeon, who also did his paracentesis last week, Dr. Gregorio, evalutated him. He felt it was a cellulitis around the site of prior paracentesis. He did not feel he needed to have another paracentesis at this time. He felt there was no new intra-abdominal symptoms. In the emergency room patient was started on Rocephin and then vancomycin. Labs: WBC 6.3, hemoglobin 12.4, [id number] 97, sodium 133, potassium 4.2, BUN 15, creatinine 0.8, glucose 113, lactic acid 2.2, C-reactive protein 1.3, total bilirubin 6.6, albumin 2.9. When patient arrived on the floor nursing reported that his blood pressure was 92/54 with the mean arterial pressure of 67 mmHg. Patient was given 500 mL of lactated Ringer's over 2 hours. Abdominal Pain Score (Numeric/FACES): 6 - Related Data Allergies/Adverse Reactions: Allergies Allergy/AdvReac Type Severity Reaction Status Date / Time amoxicillin Allergy Rash Verified 01/09/19 16:36 rosuvastatin calcium Allergy Numbness Verified 01/09/19 16:36 [From Crestor] spironolactone Allergy Rash Verified 01/09/19 16:36 Home Medications: Home Meds Albuterol Sulfate [Albuterol Sulfate HFA] 2 puff INH BID PRN 03/26/14 [History] Allopurinol [Zyloprim] 300 mg PO DAILY 03/26/14 [History] Sertraline [Zoloft] 100 mg PO DAILY 03/26/14 [History] busPIRone [Buspar] 10 mg PO BID 03/26/14 [History] Furosemide [Lasix] 40 mg PO BID 12/13/15 [History] Eplerenone. 25 mg PO BID 04/17/17 [History] Pantoprazole Sodium 40 mg PO DAILY 04/17/17 [History] Rifaximin [Xifaxan] 550 mg PO BID 04/17/17 [History] Nitroglycerin 0.4 mg SL Q5M PRN 01/05/19 [History] Potassium Chloride 10 meq PO DAILY 01/05/19 [History] Vitamin B Complex [B Complex] 1 tab PO DAILY 01/05/19 [History] traMADol [Ultram] 50 mg PO Q6H PRN 01/05/19 [History] Fluticasone/Vilanterol [Breo Ellipta 100-25 MCG Inhalation Kit] 1 puff INH DAILY 01/09/19 [History] Lactulose 10 gm PO TID 01/09/19 [History] Past Medical History HEENT History: Reports: Impaired Vision Other HEENT History: wears glasses Cardiovascular History: Reports: Heart Failure, High Cholesterol, Hypertension Respiratory History: Reports: Asthma, COPD Gastrointestinal History: Reports: Jaundice, Other (See Below) Other Gastrointestinal History: chronic liver failure. End stage liver disease Genitourinary History: Reports: Other (See Below) Other Genitourinary History: has one kidney working-right one Musculoskeletal History: Reports: Back Pain, Chronic, Other (See Below) Other Musculoskeletal History: arhtiritis Neurological History: Reports: Cerebral Aneurysms, CVA Psychiatric History: Reports: Anxiety, Depression Hematologic History: Reports: Hemochromatosis Immunologic History: Reports: None Oncologic (Cancer) History: Reports: None - Past Surgical History HEENT Surgical History: Reports: Oral Surgery Cardiovascular Surgical History: Reports: Coronary Artery Stent GI Surgical History: Reports: Colonoscopy, Hernia Repair/Other Neurological Surgical History: Reports: Other (See Below) Other Neurological Surgeries/Procedures: repair of brain aneurysms Musculoskeletal Surgical History: Reports: Other (See Below) Social & Family History - Family History Family Medical History: Noncontributory - Tobacco Use Smoking Status *Q: Former Smoker Used Tobacco, but Quit: Yes Month/Year Tobacco Last Used: 2004 - Caffeine Use Caffeine Use: Reports: None - Recreational Drug Use Recreational Drug Use: No H&P Review of Systems - Review of Systems: Review Of Systems: ROS reveals no pertinent complaints other than HPI. Exam - Exam Exam: See Below - Vital Signs Vital Signs: Last Vital Signs Temp 98.1 F 01/09/19 11:02 Pulse 87 01/09/19 15:37 Resp 14 01/09/19 15:37 BP 92/54 L 01/09/19 15:37 Pulse Ox 100 01/09/19 15:37 Weight: 197 lb 14.4 oz - Exam General: Alert, Oriented, Other HEENT: Conjunctiva Clear, Hearing Intact, Mucosa Moist & [place], Scleral Icterus Neck: Supple, Trachea Midline, 2 Lungs: Clear to Auscultation, Normal Respiratory Effort Cardiovascular: Regular Rate, Regular Rhythm GI/Abdominal Exam: Normal Bowel Sounds, Distended (Spider telangiectasias on the chest, severe distention with ascites), Tender (tender along the right abdominal wall, but nontender on the left), Other (erythema and induration on the right abdominal wall at the center of which is open wound from his paracentesis. The erythema does track down towards the flank. It is diffuse and hard to delineate.) Back Exam: Normal Inspection Extremities: Normal Inspection, Normal Range of Motion, Non-Tender, No Pedal Edema, Normal Capillary Refill Skin: Warm, Dry, Intact Neuro Extensive - Mental Status: Alert, Oriented x3, Normal Mood/Affect, Normal Cognition (normal cognition, but slow processing), Memory Intact Neuro Extensive - Motor, Sensory, Reflexes: CN II-XII Intact Psychiatric: Alert, Normal Affect, Normal Mood - Patient Data Lab Results Last 24 hrs: Laboratory Results - last 24 hr 01/09/19 01/09/19 01/09/19 Range/Units 11:35 11:35 11:37 WBC 6.30 (4.23-9.07) K/mm3 RBC 3.66 L (4.63-6.08) M/mm3 Hgb 12.4 L D (13.7-17.5) gm/dl Hct 36.6 L (40.1-51.0) % MCV 100.0 H D (79.0-92.2) fl MCH 33.9 H (25.7-32.2) pg MCHC 33.9 (32.2-35.5) g/dl RDW Std Deviation 56.4 H (35.1-43.9) fL Plt Count 97 L (163-337) K/mm3 MPV 10.3 (9.4-12.3) fl Neutrophils % (Manual) 70 H (40-60) % Band Neutrophils % 0 (0-10) % Lymphocytes % (Manual) 9 L (20-40) % Atypical Lymphs % 0 % Monocytes % (Manual) 18 H (2-10) % Eosinophils % (Manual) 3 (0.8-7.0) % Basophils % (Manual) 0 L (0.2-1.2) Platelet Estimate Decreased RBC Morph Comment Normal Sodium 133 L (136-145) mEq/L Potassium 4.2 (3.5-5.1) mEq/L Chloride 98 (98-107) mEq/L Carbon Dioxide 29 (21-32) mEq/L Anion Gap 10.2 (5-15) BUN 15 (7-18) mg/dL Creatinine 0.8 (0.7-1.3) mg/dL Est Cr Clr Drug Dosing 105.19 mL/min Estimated GFR (MDRD) > 60 (>60) mL/min BUN/Creatinine Ratio 18.8 H (14-18) Glucose 113 H (74-106) mg/dL Lactic Acid (0.4-2.0) mmol/L Calcium 8.8 (8.5-10.1) mg/dL Total Bilirubin 6.6 H (0.2-1.0) mg/dL AST 37 (15-37) U/L ALT 26 (16-63) U/L Alkaline Phosphatase 106 (46-116) U/L C-Reactive Protein 1.3 H* (<1.0) mg/dL Total Protein 6.0 L (6.4-8.2) g/dl Albumin 2.9 L (3.4-5.0) g/dl Globulin 3.1 gm/dL Albumin/Globulin Ratio 0.9 L (1-2) 01/09/19 Range/Units 11:37 WBC (4.23-9.07) K/mm3 RBC (4.63-6.08) M/mm3 Hgb (13.7-17.5) gm/dl Hct (40.1-51.0) % MCV (79.0-92.2) fl MCH (25.7-32.2) pg MCHC (32.2-35.5) g/dl RDW Std Deviation (35.1-43.9) fL Plt Count (163-337) K/mm3 MPV (9.4-12.3) fl Neutrophils % (Manual) (40-60) % Band Neutrophils % (0-10) % Lymphocytes % (Manual) (20-40) % Atypical Lymphs % % Monocytes % (Manual) (2-10) % Eosinophils % (Manual) (0.8-7.0) % Basophils % (Manual) (0.2-1.2) Platelet Estimate RBC Morph Comment Sodium (136-145) mEq/L Potassium (3.5-5.1) mEq/L Chloride (98-107) mEq/L Carbon Dioxide (21-32) mEq/L Anion Gap (5-15) BUN (7-18) mg/dL Creatinine (0.7-1.3) mg/dL Est Cr Clr Drug Dosing mL/min Estimated GFR (MDRD) (>60) mL/min BUN/Creatinine Ratio (14-18) Glucose (74-106) mg/dL Lactic Acid 2.2 H (0.4-2.0) mmol/L Calcium (8.5-10.1) mg/dL Total Bilirubin (0.2-1.0) mg/dL AST (15-37) U/L ALT (16-63) U/L Alkaline Phosphatase (46-116) U/L C-Reactive Protein (<1.0) mg/dL Total Protein (6.4-8.2) g/dl Albumin (3.4-5.0) g/dl Globulin gm/dL Albumin/Globulin Ratio (1-2) Result Diagrams: 01/09/19 11:35 01/09/19 11:35 Problem List Initiated/Reviewed/Updated: Yes Orders Last 24hrs: Active Orders 24 hr Category Date Time Status Admission Status [Patient Status] [ADT] Routine ADT 01/09/19 14:45 Active Antiembolic Devices [RC] PER UNIT ROUTINE Care 01/09/19 17:13 Ordered Oxygen Therapy [RC] PRN Care 01/09/19 17:10 Ordered Peripheral IV Care [RC] . DIRECTED Care 01/09/19 11:49 Active Up ad Haley [RC] ASDIRECTED Care 01/09/19 17:10 Ordered VTE/DVT Education [RC] PER UNIT ROUTINE Care 01/09/19 17:10 Ordered Vital Signs [RC] Q4H Care 01/09/19 17:10 Ordered Consult to Manager Trust [CONS] Routine Cons 01/09/19 17:12 Ordered Regular Diet [DIET] Diet 01/09/19 Dinner Ordered CBC WITH AUTO DIFF [HEME] AM Lab 01/10/19 05:11 Ordered CBC WITH AUTO DIFF [HEME] AM Lab 01/11/19 05:11 Ordered CBC WITH AUTO DIFF [HEME] AM Lab 01/12/19 05:11 Ordered CBC WITH AUTO DIFF [HEME] AM Lab 01/13/19 05:11 Ordered COMPREHENSIVE METABOLIC PN,CMP [CHEM] AM Lab 01/10/19 05:11 Ordered COMPREHENSIVE METABOLIC PN,CMP [CHEM] AM Lab 01/11/19 05:11 Ordered COMPREHENSIVE METABOLIC PN,CMP [CHEM] AM Lab 01/12/19 05:11 Ordered COMPREHENSIVE METABOLIC PN,CMP [CHEM] AM Lab 01/13/19 05:11 Ordered CULTURE BLOOD [BC] Stat Lab 01/09/19 11:35 Received CULTURE BLOOD [BC] Stat Lab 01/09/19 11:35 Received MAGNESIUM [CHEM] AM Lab 01/10/19 05:11 Ordered MAGNESIUM [CHEM] AM Lab 01/11/19 05:11 Ordered MAGNESIUM [CHEM] AM Lab 01/12/19 05:11 Ordered MAGNESIUM [CHEM] AM Lab 01/13/19 05:11 Ordered VANCOMYCIN TROUGH [CHEM] Timed Lab 01/11/19 09:30 Ordered Albuterol [Proventil HFA] Med 01/09/19 17:13 Ordered 2 puff INH BID PRN Allopurinol [Zyloprim] Med 01/10/19 09:00 Ordered 300 mg PO DAILY Eplerenone. Med 01/09/19 21:00 Ordered 25 mg PO BID Fluticasone/Vilanterol Med 01/10/19 09:00 Ordered 1 puff INH DAILY Furosemide [Lasix] Med 01/10/19 09:00 Ordered 40 mg PO BID Lactated Ringers [Ringers, Lactated] 500 ml Med 01/09/19 18:00 Active IV ONETIME Lactulose Med 01/09/19 21:00 Ordered 10 gm PO TID Nitroglycerin [Nitrostat] Med 01/09/19 17:13 Ordered 0.4 mg SL Q5M PRN Pantoprazole [ProTONIX] Med 01/10/19 09:00 Ordered 40 mg PO DAILY Pharmacy to Dose - Vancomycin Med 01/09/19 16:00 Pending 1 dose .XX ASDIRECTED Potassium Chloride [Potassium Chloride] Med 01/10/19 09:00 Ordered 10 meq PO DAILY Rifaximin [Xifaxan] Med 01/09/19 21:00 Ordered 550 mg PO BID Sertraline Med 01/10/19 09:00 Ordered 100 mg PO DAILY Sodium Chloride 0.9% [Saline Flush] Med 01/09/19 11:48 Active 10 ml FLUSH ASDIRECTED PRN Vancomycin 1.25 gm Med 01/10/19 02:00 Active Sodium Chloride 0.9% [Normal Saline] 250 ml IV Q12H busPIRone [Buspar] Med 01/09/19 21:00 Ordered 10 mg PO BID traMADol [Ultram] Med 01/09/19 17:13 Ordered 50 mg PO Q6H PRN Peripheral IV Insertion Adult [OM.PC] Stat Oth 01/09/19 11:49 Ordered Sequential Compression Device [OM.PC] Per Unit Routine Oth 01/09/19 17:11 Ordered Resuscitation Status Routine Resus Stat 01/09/19 17:10 Ordered Medication Orders Vancomycin HCl 1.25 gm/ Sodium (Chloride) 250 mls @ 166.667 mls/hr IV Q12H HO Lactated Ringer's (Ringers, Lactated) 500 mls @ 250 mls/hr IV ONETIME ONE Stop: 01/09/19 19:59 Sodium Chloride (Saline Flush) 10 ml FLUSH ASDIRECTED PRN PRN Reason: Keep Vein Open Last Admin: 01/09/19 12:32 Dose: 10 ml Vancomycin HCl (Pharmacy To Dose - Vancomycin) 1 dose .XX ASDIRECTED [facility] Assessment/Plan Comment:: Assessment * 58-year-old male with end-stage liver disease and gets weekly paracentesis for ascites * Right lower abdominal wall cellulitis secondary to infected entry at a paracentesis site on * thrombocytopenia, anemia * Hyponatremia * past medical history of hemorrhagic CVA in 2017, congestive heart failure, Coronary artery disease, sleep apnea, Plan * Admit to medical floor * Continue vancomycin and ceftriaxone * blood cultures * check INR and lactic acid in the morning * CBC, CMP, mag, C-reactive protein in the morning * Restart home meds * surgery to follow * VTE prophylaxis with SCDs * CODE STATUS:DNR/DNI - Mortality Measure Prognosis:: Poor
[2019-01-09] MEDS ORDERED: Lactated Ringers 500 ML IV ONE (18:00)
[2019-01-09] MEDS: busPIRone 5 MG Tab PO SCH (20:05)
[2019-01-09] MEDS: Lactulose Soln 10 GM/15 ML 30 ML UD Cup PO SCH (20:05)
[2019-01-09] MEDS: Rifaximin 550 MG Tab PO SCH (20:05)
[2019-01-09] MEDS ORDERED: Vancomycin 1 GM SDV ONE (22:00)
[2019-01-09] MEDS ORDERED: Sodium Chloride 0.9% 250 ML IV ONE (22:00)
[2019-01-10] MEDS: Pantoprazole 40 MG Tab.CR PO SCH ×2 (05:33→06:18)
[2019-01-10] MEDS: Formoterol/Mometasone 100-5 MCG 8.8 GM Inhaler IH SCH ×2 (06:11→21:12)
[2019-01-10] MEDS: EPLERENONE 25 MG PO SCH ×4 (09:00→20:39)
[2019-01-10] MEDS: Lactulose Soln 10 GM/15 ML 30 ML UD Cup PO SCH ×3 (09:57→20:39)
[2019-01-10] MEDS: Furosemide 20 MG Tab PO SCH ×2 (09:58→14:18)
[2019-01-10] MEDS: Sertraline 50 MG Tab PO SCH (09:59)
[2019-01-10] MEDS: busPIRone 5 MG Tab PO SCH ×2 (10:00→20:39)
[2019-01-10] MEDS: Allopurinol 300 MG Tab PO SCH (10:00)
[2019-01-10] MEDS: Potassium Chloride 10 MEQ Tab.ER PO SCH (10:00)
[2019-01-10] MEDS: Rifaximin 550 MG Tab PO SCH ×2 (10:01→20:39)
[2019-01-10] MEDS: cefTRIAXone 2 GM in Sodium Chloride 0.9% 100 ML IV SCH (13:29)
[2019-01-10] MEDS: Vancomycin 1 GM, Vancomycin 500 MG in Sodium Chloride 0.9% 500 ML IV SCH (14:14)
--- NOTE | 2019-01-10 14:47 | PCM.PN ---
- General Info Date of Service: 01/10/19 Admission Dx/Problem (Free Text): Cellulitis Subjective Update: Patient continues to be afebrile. He states he is starting to feel better. There is less pain in the right lower abdomen and flank. Functional Status: Reports: Pain Controlled - Review of Systems General: Reports: No Symptoms HEENT: Reports: No Symptoms Pulmonary: Reports: No Symptoms Cardiovascular: Reports: No Symptoms Genitourinary: Reports: No Symptoms - Patient Data Vitals - Most Recent: Last Vital Signs Temp 99.0 F 01/10/19 11:57 Pulse 93 01/10/19 11:57 Resp 17 01/10/19 11:57 BP 108/59 L 01/10/19 11:57 Pulse Ox 97 01/10/19 11:57 Weight - Most Recent: 200 lb 12.8 oz I&O - Last 24 Hours: Intake & Output 01/09/19 01/10/19 01/10/19 22:59 06:59 14:59 Intake Total 1100 0 Output Total 550 Balance 550 0 Lab Results Last 24 Hours: Laboratory Results - last 24 hr 01/09/19 01/10/19 01/10/19 Range/Units 11:37 05:29 05:29 WBC 5.23 (4.23-9.07) K/mm3 RBC 3.26 L (4.63-6.08) M/mm3 Hgb 11.3 L (13.7-17.5) gm/dl Hct 32.7 L (40.1-51.0) % MCV 100.3 H (79.0-92.2) fl MCH 34.7 H (25.7-32.2) pg MCHC 34.6 (32.2-35.5) g/dl RDW Std Deviation 55.4 H (35.1-43.9) fL Plt Count 86 L (163-337) K/mm3 MPV 10.3 (9.4-12.3) fl Neut % (Auto) 64.8 (34.0-67.9) % Lymph % (Auto) 10.3 L (21.8-53.1) % Carbon % (Auto) 14.9 H (5.3-12.2) % Eos % (Auto) 9.2 H (0.8-7.0) Baso % (Auto) 0.8 (0.1-1.2) % Neut # (Auto) 3.39 (1.78-5.38) K/mm3 Lymph # (Auto) 0.54 L (1.32-3.57) K/mm3 Carbon # (Auto) 0.78 (0.30-0.82) K/mm3 Eos # (Auto) 0.48 (0.04-0.54) K/mm3 Baso # (Auto) 0.04 (0.01-0.08) K/mm3 Manual Slide Review Abnormal smear PT (9.7-12.0) SECONDS INR Sodium 135 L (136-145) mEq/L Potassium 4.1 (3.5-5.1) mEq/L Chloride 101 (98-107) mEq/L Carbon Dioxide 27 (21-32) mEq/L Anion Gap 11.1 (5-15) BUN 15 (7-18) mg/dL Creatinine 0.8 (0.7-1.3) mg/dL Est Cr Clr Drug Dosing 105.19 mL/min Estimated GFR (MDRD) > 60 (>60) mL/min BUN/Creatinine Ratio 18.8 H (14-18) Glucose 102 (74-106) mg/dL Lactic Acid 2.2 H (0.4-2.0) mmol/L Calcium 8.7 (8.5-10.1) mg/dL Magnesium 1.8 (1.8-2.4) mg/dl Total Bilirubin 5.9 H (0.2-1.0) mg/dL AST 32 (15-37) U/L ALT 20 (16-63) U/L Alkaline Phosphatase 95 (46-116) U/L Total Protein 5.3 L (6.4-8.2) g/dl Albumin 2.5 L (3.4-5.0) g/dl Globulin 2.8 gm/dL Albumin/Globulin Ratio 0.9 L (1-2) 01/10/19 01/10/19 Range/Units 05:29 05:29 WBC (4.23-9.07) K/mm3 RBC (4.63-6.08) M/mm3 Hgb (13.7-17.5) gm/dl Hct (40.1-51.0) % MCV (79.0-92.2) fl MCH (25.7-32.2) pg MCHC (32.2-35.5) g/dl RDW Std Deviation (35.1-43.9) fL Plt Count (163-337) K/mm3 MPV (9.4-12.3) fl Neut % (Auto) (34.0-67.9) % Lymph % (Auto) (21.8-53.1) % Carbon % (Auto) (5.3-12.2) % Eos % (Auto) (0.8-7.0) Baso % (Auto) (0.1-1.2) % Neut # (Auto) (1.78-5.38) K/mm3 Lymph # (Auto) (1.32-3.57) K/mm3 Carbon # (Auto) (0.30-0.82) K/mm3 Eos # (Auto) (0.04-0.54) K/mm3 Baso # (Auto) (0.01-0.08) K/mm3 Manual Slide Review PT 14.5 H (9.7-12.0) SECONDS INR 1.35 Sodium (136-145) mEq/L Potassium (3.5-5.1) mEq/L Chloride (98-107) mEq/L Carbon Dioxide (21-32) mEq/L Anion Gap (5-15) BUN (7-18) mg/dL Creatinine (0.7-1.3) mg/dL Est Cr Clr Drug Dosing mL/min Estimated GFR (MDRD) (>60) mL/min BUN/Creatinine Ratio (14-18) Glucose (74-106) mg/dL Lactic Acid 1.0 (0.4-2.0) mmol/L Calcium (8.5-10.1) mg/dL Magnesium (1.8-2.4) mg/dl Total Bilirubin (0.2-1.0) mg/dL AST (15-37) U/L ALT (16-63) U/L Alkaline Phosphatase (46-116) U/L Total Protein (6.4-8.2) g/dl Albumin (3.4-5.0) g/dl Globulin gm/dL Albumin/Globulin Ratio (1-2) Luis Results Last 24 Hours: Microbiology 01/09/19 11:35 Aerobic Blood Culture - Preliminary Blood NO GROWTH AFTER 1 DAY Anaerobic Blood Culture - Preliminary NO GROWTH AFTER 1 DAY 01/09/19 11:35 Aerobic Blood Culture - Preliminary Blood NO GROWTH AFTER 1 DAY Anaerobic Blood Culture - Preliminary NO GROWTH AFTER 1 DAY Med Orders - Current: Current Medications Albuterol (Proventil Hfa) 0 gm INH BIDRT PRN PRN Reason: Shortness of Breath Allopurinol (Zyloprim) 300 mg PO DAILY [facility] Last Admin: 01/10/19 10:00 Dose: 300 mg Buspirone HCl (Buspar) 10 mg PO BID [facility] Last Admin: 01/10/19 10:00 Dose: 10 mg Furosemide (Lasix) 40 mg PO BID@0900,1500 [facility] Last Admin: 01/10/19 14:18 Dose: 40 mg Ceftriaxone Sodium 2 gm/ (Sodium Chloride) 100 mls @ 200 mls/hr IV Q24H [facility] Last Admin: 01/10/19 13:29 Dose: 200 mls/hr Vancomycin HCl 1 gm/Vancomycin HCl 500 mg/ Sodium Chloride 500 mls @ 333.333 mls/hr IV Q12H [facility] Last Admin: 01/10/19 14:14 Dose: 333.333 mls/hr Lactulose (Cephulac) 10 gm PO TID [facility] Last Admin: 01/10/19 14:17 Dose: 10 gm Mometasone Furoate/Formoterol Fumar (Dulera 100-5 Mcg) 0 puff IH BIDRT [facility] Last Admin: 01/10/19 06:11 Dose: 2 puff Nitroglycerin (Nitrostat) 0.4 mg SL Q5M PRN PRN Reason: Chest Pain Pantoprazole Sodium (Protonix) 40 mg PO DAILY@0700 [facility] Last Admin: 01/10/19 06:18 Dose: Not Given Eplerenone. 25 Mg 0 each PO BID [facility] Last Admin: 01/10/19 13:28 Dose: 1 each Potassium Chloride (Klor-Con 10) 10 meq PO DAILY [facility] Last Admin: 01/10/19 10:00 Dose: 10 meq Rifaximin (Xifaxan) 550 mg PO BID [facility] Last Admin: 01/10/19 10:01 Dose: 550 mg Sertraline HCl (Zoloft) 100 mg PO DAILY [facility] Last Admin: 01/10/19 09:59 Dose: 100 mg Sodium Chloride (Saline Flush) 10 ml FLUSH ASDIRECTED PRN PRN Reason: Keep Vein Open Last Admin: 01/09/19 12:32 Dose: 10 ml Tramadol HCl (Ultram) 50 mg PO Q6H PRN PRN Reason: Pain Vancomycin HCl (Pharmacy To Dose - Vancomycin) 1 dose .XX ASDIRECTED HO Discontinued Medications Ceftriaxone Sodium 2 gm/ (Sodium Chloride) 100 mls @ 200 mls/hr IV Q24H ONE Stop: 01/09/19 14:15 Last Admin: 01/09/19 13:58 Dose: 200 mls/hr Vancomycin HCl 1.5 gm/ Sodium (Chloride) 500 mls @ 250 mls/hr IV ONETIME ONE Stop: 01/09/19 14:33 Last Admin: 01/09/19 15:47 Dose: 250 mls/hr Vancomycin HCl 1.25 gm/ Sodium (Chloride) 250 mls @ 166.667 mls/hr IV Q12H [facility] Last Admin: 01/10/19 01:37 Dose: 166.667 mls/hr Lactated Ringer's (Ringers, Lactated) 500 mls @ 250 mls/hr IV ONETIME ONE Stop: 01/09/19 19:59 Last Admin: 01/09/19 17:56 Dose: 250 mls/hr Sodium Chloride (Normal Saline) 250 mls @ 250 mls/hr IV ONETIME ONE Stop: 01/09/19 22:59 Last Admin: 01/09/19 22:30 Dose: Not Given Vancomycin HCl (Vancomycin) 1.25 gm .XX ONETIME ONE Stop: 01/09/19 22:01 Last Admin: 01/09/19 22:31 Dose: Not Given - Exam General: Alert, Oriented HEENT: Pupils Equal, Pupils Reactive, EOMI, Mucous Membr. Moist/[place] Neck: Supple Lungs: Clear to Auscultation, Normal Respiratory Effort Cardiovascular: Regular Rate, Regular Rhythm GI/Abdominal Exam: Normal Bowel Sounds, Soft, No Distention, Tender (Right lower abdomen tender with induration and mild redness, both improving.) Extremities: Normal Inspection, No Pedal Edema Skin: Warm, Dry, Intact Psy/Mental Status: Alert, Normal Affect, Normal Mood - Problem List Review Problem List Initiated/Reviewed/Updated: Yes - My Orders Last 24 Hours: My Active Orders 01/09/19 16:00 Pharmacy to Dose - Vancomycin 1 dose .XX ASDIRECTED 01/09/19 17:10 Oxygen Therapy [RC] PRN Up ad Haley [RC] BID VTE/DVT Education [RC] DAILY Vital Signs [RC] 04,08,12,16,22 Resuscitation Status Routine 01/09/19 17:11 Sequential Compression Device [OM.PC] Per Unit Routine 01/09/19 17:12 Consult to Director Employment [CONS] Routine 01/09/19 17:13 Antiembolic Devices [RC] BID Albuterol [Proventil HFA] 0 gm INH BIDRT PRN Nitroglycerin [Nitrostat] 0.4 mg SL Q5M PRN traMADol [Ultram] 50 mg PO Q6H PRN 01/09/19 21:00 Lactulose [Cephulac] 10 gm PO TID Patient's Own Medication [Ptom] 0 each PO BID Rifaximin [Xifaxan] 550 mg PO BID busPIRone [Buspar] 10 mg PO BID 01/09/19 Dinner Regular Diet [DIET] 01/10/19 06:00 Mometasone/Formoterol [Dulera 100-5 MCG] 0 puff IH BIDRT 01/10/19 07:00 Pantoprazole [ProTONIX] 40 mg PO DAILY@0700 01/10/19 09:00 Allopurinol [Zyloprim] 300 mg PO DAILY Furosemide [Lasix] 40 mg PO BID@0900,1500 Potassium Chloride [Klor-Con 10] 10 meq PO DAILY Sertraline [Zoloft] 100 mg PO DAILY 01/10/19 13:00 cefTRIAXone [Rocephin] 2 gm Sodium Chloride 0.9% [Normal Saline] 100 ml IV Q24H 01/10/19 14:00 Vancomycin 1 gm Vancomycin 500 mg Sodium Chloride 0.9% [Normal Saline] 500 ml IV Q12H 01/11/19 05:11 C-REACTIVE PROTEIN [CHEM] AM CBC WITH AUTO DIFF [HEME] AM COMPREHENSIVE METABOLIC PN,CMP [CHEM] AM MAGNESIUM [CHEM] AM 01/11/19 13:00 VANCOMYCIN TROUGH [CHEM] Timed 01/12/19 05:11 C-REACTIVE PROTEIN [CHEM] AM CBC WITH AUTO DIFF [HEME] AM COMPREHENSIVE METABOLIC PN,CMP [CHEM] AM MAGNESIUM [CHEM] AM 01/13/19 05:11 C-REACTIVE PROTEIN [CHEM] AM CBC WITH AUTO DIFF [HEME] AM COMPREHENSIVE METABOLIC PN,CMP [CHEM] AM MAGNESIUM [CHEM] AM 01/14/19 05:11 C-REACTIVE PROTEIN [CHEM] AM 01/15/19 05:11 C-REACTIVE PROTEIN [CHEM] AM - Plan Plan:: Assessment * 58-year-old male with end-stage liver disease and gets weekly paracentesis for ascites * INR 1.35, T bili 5.9, Albumin 2.5 * Child Ohng : Class C * Right lower abdominal wall cellulitis secondary to infected entry at a paracentesis site on * thrombocytopenia, anemia * Hyponatremia * past medical history of hemorrhagic CVA in 2017, congestive heart failure, Coronary artery disease, sleep apnea, Plan * Admit to medical floor * Continue vancomycin and ceftriaxone * blood cultures - pending * CBC, CMP, mag, C-reactive protein in the morning * Restart home meds * surgery to follow * VTE prophylaxis with SCDs * CODE STATUS:DNR/DNI
--- NOTE | 2019-01-10 17:29 | PCM.SN ---
- Free Text/Narrative Note: I saw the patient today. Feeling well. RLQ induration, tenderness and cellulitis are markedly improved. Continue antibiotics today, It is reasonable to switch to PO abx tomorrow.
[2019-01-11] MEDS: Vancomycin 1 GM, Vancomycin 500 MG in Sodium Chloride 0.9% 500 ML IV SCH (03:10)
[2019-01-11] MEDS: Formoterol/Mometasone 100-5 MCG 8.8 GM Inhaler IH SCH ×2 (05:43→20:31)
[2019-01-11] MEDS: Pantoprazole 40 MG Tab.CR PO SCH (06:00)
[2019-01-11] MEDS: Rifaximin 550 MG Tab PO SCH ×2 (08:39→20:17)
[2019-01-11] MEDS: Sertraline 50 MG Tab PO SCH (08:39)
[2019-01-11] MEDS: Lactulose Soln 10 GM/15 ML 30 ML UD Cup PO SCH ×3 (08:39→20:17)
[2019-01-11] MEDS: busPIRone 5 MG Tab PO SCH ×2 (08:39→20:17)
[2019-01-11] MEDS: Furosemide 40 MG Tab PO SCH ×2 (08:39→16:27)
[2019-01-11] MEDS: Allopurinol 300 MG Tab PO SCH (08:40)
[2019-01-11] MEDS: Potassium Chloride 10 MEQ Tab.ER PO SCH (08:40)
--- NOTE | 2019-01-11 08:51 | CR ---
Chest: Two views of the chest were obtained. Comparison: Prior chest x-ray of 04/17/17. Heart size and mediastinum are normal. Lungs are clear. Bony structures appear within normal limits for the patient's age. Impression: 1. Nothing acute is appreciated on two-view chest x-ray. Diagnostic code #1
[2019-01-11] MEDS: EPLERENONE 25 MG PO SCH (09:51)
[2019-01-11] MEDS: cefTRIAXone 2 GM in Sodium Chloride 0.9% 100 ML IV SCH (12:47)
--- NOTE | 2019-01-11 16:38 | PCM.PN ---
- Patient Data Vitals - Most Recent: Last Vital Signs Temp 37.0 C 01/11/19 11:48 Pulse 87 01/11/19 15:41 Resp 14 01/11/19 15:41 BP 92/61 01/11/19 15:41 Pulse Ox 97 01/11/19 15:41 Weight - Most Recent: 92.079 kg I&O - Last 24 Hours: Intake & Output 01/11/19 01/11/19 01/11/19 06:59 14:59 22:59 Intake Total 300 0 1040 Balance 300 0 1040 Lab Results Last 24 Hours: Laboratory Results - last 24 hr 01/11/19 01/11/19 01/11/19 Range/Units 05:38 05:38 13:05 WBC 6.19 (4.23-9.07) K/mm3 RBC 3.42 L (4.63-6.08) M/mm3 Hgb 11.9 L (13.7-17.5) gm/dl Hct 34.2 L (40.1-51.0) % MCV 100.0 H (79.0-92.2) fl MCH 34.8 H (25.7-32.2) pg MCHC 34.8 (32.2-35.5) g/dl RDW Std Deviation 54.6 H (35.1-43.9) fL Plt Count 91 L (163-337) K/mm3 MPV 10.2 (9.4-12.3) fl Neut % (Auto) 56.7 (34.0-67.9) % Lymph % (Auto) 13.6 L (21.8-53.1) % Tama % (Auto) 16.8 H (5.3-12.2) % Eos % (Auto) 12.3 H (0.8-7.0) Baso % (Auto) 0.6 (0.1-1.2) % Neut # (Auto) 3.51 (1.78-5.38) K/mm3 Lymph # (Auto) 0.84 L (1.32-3.57) K/mm3 Tama # (Auto) 1.04 H (0.30-0.82) K/mm3 Eos # (Auto) 0.76 H (0.04-0.54) K/mm3 Baso # (Auto) 0.04 (0.01-0.08) K/mm3 Manual Slide Review Abnormal smear Sodium 139 (136-145) mEq/L Potassium 4.0 (3.5-5.1) mEq/L Chloride 104 (98-107) mEq/L Carbon Dioxide 26 (21-32) mEq/L Anion Gap 13.0 (5-15) BUN 12 (7-18) mg/dL Creatinine 0.9 (0.7-1.3) mg/dL Est Cr Clr Drug Dosing 93.73 mL/min Estimated GFR (MDRD) > 60 (>60) mL/min BUN/Creatinine Ratio 13.3 L (14-18) Glucose 101 (74-106) mg/dL Calcium 8.6 (8.5-10.1) mg/dL Magnesium 1.8 (1.8-2.4) mg/dl Total Bilirubin 4.3 H (0.2-1.0) mg/dL AST 32 (15-37) U/L ALT 20 (16-63) U/L Alkaline Phosphatase 102 (46-116) U/L C-Reactive Protein 1.3 H* (<1.0) mg/dL Total Protein 5.5 L (6.4-8.2) g/dl Albumin 2.6 L (3.4-5.0) g/dl Globulin 2.9 gm/dL Albumin/Globulin Ratio 0.9 L (1-2) Vancomycin Trough 18.9 (10.0-20.0) Luis Results Last 24 Hours: Microbiology 01/09/19 11:35 Aerobic Blood Culture - Preliminary Blood NO GROWTH AFTER 2 DAYS Anaerobic Blood Culture - Preliminary NO GROWTH AFTER 2 DAYS 01/09/19 11:35 Aerobic Blood Culture - Preliminary Blood NO GROWTH AFTER 2 DAYS Anaerobic Blood Culture - Preliminary NO GROWTH AFTER 2 DAYS Med Orders - Current: Current Medications Albuterol (Proventil Hfa) 0 gm INH BIDRT PRN PRN Reason: Shortness of Breath Allopurinol (Zyloprim) 300 mg PO DAILY [facility] Last Admin: 01/11/19 08:40 Dose: 300 mg Buspirone HCl (Buspar) 10 mg PO BID [facility] Last Admin: 01/11/19 08:39 Dose: 10 mg Furosemide (Lasix) 40 mg PO BID@0900,1500 [facility] Last Admin: 01/11/19 16:27 Dose: 40 mg Ceftriaxone Sodium 2 gm/ (Sodium Chloride) 100 mls @ 200 mls/hr IV Q24H [facility] Last Admin: 01/11/19 12:47 Dose: 200 mls/hr Vancomycin HCl 1.25 gm/ Sodium (Chloride) 250 mls @ 166.667 mls/hr IV Q12H [facility] Last Admin: 01/11/19 15:40 Dose: 166.667 mls/hr Lactulose (Cephulac) 10 gm PO TID [facility] Last Admin: 01/11/19 16:27 Dose: 10 gm Mometasone Furoate/Formoterol Fumar (Dulera 100-5 Mcg) 0 puff IH BIDRT [facility] Last Admin: 01/11/19 05:43 Dose: 2 puff Nitroglycerin (Nitrostat) 0.4 mg SL Q5M PRN PRN Reason: Chest Pain Pantoprazole Sodium (Protonix) 40 mg PO DAILY@0700 [facility] Last Admin: 01/11/19 06:00 Dose: 40 mg Eplerenone. 25 Mg 0 each PO DAILY [facility] Last Admin: 01/11/19 09:51 Dose: 2 each Potassium Chloride (Klor-Con 10) 10 meq PO DAILY [facility] Last Admin: 01/11/19 08:40 Dose: 10 meq Rifaximin (Xifaxan) 550 mg PO BID [facility] Last Admin: 01/11/19 08:39 Dose: 550 mg Sertraline HCl (Zoloft) 100 mg PO DAILY [facility] Last Admin: 01/11/19 08:39 Dose: 100 mg Sodium Chloride (Saline Flush) 10 ml FLUSH ASDIRECTED PRN PRN Reason: Keep Vein Open Last Admin: 01/09/19 12:32 Dose: 10 ml Tramadol HCl (Ultram) 50 mg PO Q6H PRN PRN Reason: Pain Vancomycin HCl (Pharmacy To Dose - Vancomycin) 1 dose .XX ASDIRECTED [facility] Discontinued Medications Furosemide (Lasix) 40 mg PO BID@0900,1500 [facility] Last Admin: 01/10/19 14:18 Dose: 40 mg Ceftriaxone Sodium 2 gm/ (Sodium Chloride) 100 mls @ 200 mls/hr IV Q24H ONE Stop: 01/09/19 14:15 Last Admin: 01/09/19 13:58 Dose: 200 mls/hr Vancomycin HCl 1.5 gm/ Sodium (Chloride) 500 mls @ 250 mls/hr IV ONETIME ONE Stop: 01/09/19 14:33 Last Admin: 01/09/19 15:47 Dose: 250 mls/hr Vancomycin HCl 1.25 gm/ Sodium (Chloride) 250 mls @ 166.667 mls/hr IV Q12H [facility] Last Admin: 01/10/19 01:37 Dose: 166.667 mls/hr Lactated Ringer's (Ringers, Lactated) 500 mls @ 250 mls/hr IV ONETIME ONE Stop: 01/09/19 19:59 Last Admin: 01/09/19 17:56 Dose: 250 mls/hr Sodium Chloride (Normal Saline) 250 mls @ 250 mls/hr IV ONETIME ONE Stop: 01/09/19 22:59 Last Admin: 01/09/19 22:30 Dose: Not Given Vancomycin HCl 1 gm/Vancomycin HCl 500 mg/ Sodium Chloride 500 mls @ 333.333 mls/hr IV Q12H [facility] Last Admin: 01/11/19 03:10 Dose: 333.333 mls/hr Eplerenone. 25 Mg 0 each PO BID [facility] Last Admin: 01/10/19 20:39 Dose: 1 each Vancomycin HCl (Vancomycin) 1.25 gm .XX ONETIME ONE Stop: 01/09/19 22:01 Last Admin: 01/09/19 22:31 Dose: Not Given - My Orders Last 24 Hours: My Active Orders 01/11/19 08:09 IS (RT) [RT Incentive Spirometry] [RC] Q1HWA 01/11/19 12:15 RT Chest Physiotherapy [RC] ASDIRECTED 01/11/19 16:00 Vancomycin 1.25 gm Sodium Chloride 0.9% [Normal Saline] 250 ml IV Q12H - Plan Plan:: Assessment * 58-year-old male with end-stage liver disease and gets weekly paracentesis for ascites * INR 1.35, T bili 5.9, Albumin 2.5 * Child Hong : Class C * Right lower abdominal wall cellulitis secondary to infected entry at a paracentesis site on * thrombocytopenia, anemia * Hyponatremia * past medical history of hemorrhagic CVA in 2017, congestive heart failure, Coronary artery disease, sleep apnea, Plan * Admit to medical floor * Continue vancomycin and ceftriaxone * blood cultures - pending * CBC, CMP, mag, C-reactive protein in the morning * Restart home meds * surgery to follow * VTE prophylaxis with SCDs * CODE STATUS:DNR/DNI
[2019-01-12] MEDS: Formoterol/Mometasone 100-5 MCG 8.8 GM Inhaler IH SCH (05:50)
[2019-01-12] MEDS: Pantoprazole 40 MG Tab.CR PO SCH (06:08)
[2019-01-12] MEDS: busPIRone 5 MG Tab PO SCH (10:06)
[2019-01-12] MEDS: Lactulose Soln 10 GM/15 ML 30 ML UD Cup PO SCH ×2 (10:07→16:02)
[2019-01-12] MEDS: Potassium Chloride 10 MEQ Tab.ER PO SCH (10:08)
[2019-01-12] MEDS: Furosemide 40 MG Tab PO SCH ×2 (10:08→16:02)
[2019-01-12] MEDS: Sertraline 50 MG Tab PO SCH (10:09)
[2019-01-12] MEDS: Rifaximin 550 MG Tab PO SCH (10:09)
[2019-01-12] MEDS: Allopurinol 300 MG Tab PO SCH (10:09)
[2019-01-12] MEDS: EPLERENONE 25 MG PO SCH (11:12)
[2019-01-12] MEDS ORDERED: Potassium Chloride 20 MEQ Tab.ER PO ONE (11:30)
[2019-01-12] MEDS ORDERED: Magnesium Sulfate/Water 4 GM in Premix Bag 1 BAG IV ONE (11:30)
[2019-01-12] MEDS: cefTRIAXone 2 GM in Sodium Chloride 0.9% 100 ML IV SCH (13:15)
[2019-01-12] MEDS ORDERED: Albumin 25% 12.5 GM/50 ML BAG IV ONE ×2 (15:47→15:50)
--- NOTE | 2019-01-12 15:52 | PCM.SN ---
- Free Text/Narrative Note: Patient doing well, right sided induration and cellulitis has completely resolved. Paracentesis on the LLQ performed today. 5.5 L of ascites removed. See procedure note for details. Procedure note dictated. Patient can be discharged from the hospital from my standpoint. He will need PO antibiotics to complete course for cellulitis.
--- NOTE | 2019-01-12 16:19 | OR ---
DATE OF PROCEDURE: 01/12/2019 SURGEON: Arnie Gregorio MD PREOPERATIVE DIAGNOSIS: 1. Abdominal ascites. 2. Liver failure. POSTOPERATIVE DIAGNOSIS: 1. Abdominal ascites. 2. Liver failure. OPERATION PERFORMED: Paracentesis. INDICATIONS: The patient is a 58-year-old male with decompensated liver failure with ascites. The patient gets weekly paracenteses. The patient was admitted to the hospital for cellulitis, for which he is being managed with antibiotics. He was due for paracentesis today. Therefore, was asked to perform this procedure. I saw the patient and I discussed with the patient the risks, benefits, and alternatives. The patient agreed to proceed with procedure. Informed consent was obtained. DESCRIPTION OF PROCEDURE: The patient was placed in supine position with head of bed elevated. Then, the ultrasound was used to guide an area for paracentesis. Since the patient had cellulitis in the right lateral abdomen, we chose to go on the left side. Ultrasound was used to locate an area where there was clear amount of fluid with bowel little bit far away. This area was prepped and draped in the usual sterile fashion and then lidocaine 1% was injected on the skin and through the subcutaneous tissue and muscle as well as the peritoneum for local anesthetic. Then, a standard 14-gauge catheter over the needle was advanced into the peritoneum until fluid was aspirated. The catheter was advanced where the needle was withdrawn and then vacuum containers were used to drain 5.5 L of ascites. The drainage was difficult. We had to do multiple catheter adjustments to avoid adhesive tissue that was clogging the catheter. Samples were sent for cell count and cultures, and once the drainage was done, the catheter was withdrawn. The puncture site was sealed with Dermabond. The patient tolerated the procedure well. At the end of the procedure, all instruments were disposed off appropriately and the patient to be supplemented with 25 g of albumin prior to discharge from the hospital. ANESTHESIA: ESTIMATED BLOOD LOSS: MMODAL /[id number] MTDD
[2019-01-12 17:19] VITALS: BP 94/52; PULSE 90
[2019-01-12] MEDS ORDERED: Potassium Chloride 20 MEQ Tab.ER PO SCH (21:00)
== END 2019-01-12 18:00 | disposition home or self-care (01) | DRG 863 ==
LOC: JD.ED 10:53 → JD.MS 14:48
PROVIDERS: ADMIT Family Medicine; ATTEND Family Medicine
PROC: 0W9G3ZZ Drainage of Peritoneal Cavity, Percutaneous Approach (ICD-10-PCS; principal; 2019-01-12)
DX: T81.40XA Infection following a procedure, unspecified, initial encounter (principal); L03.311 Cellulitis of abdominal wall; K72.10 Chronic hepatic failure without coma; R06.00 Dyspnea, unspecified; R18.8 Other ascites; E83.119 Hemochromatosis, unspecified; I10 Essential (primary) hypertension; E87.1 Hypo-osmolality and hyponatremia; H54.7 Unspecified visual loss; I11.0 Hypertensive heart disease with heart failure; I50.9 Heart failure, unspecified; Z66 Do not resuscitate; E78.00 Pure hypercholesterolemia, unspecified; J44.9 Chronic obstructive pulmonary disease, unspecified; K72.90 Hepatic failure, unspecified without coma; F41.9 Anxiety disorder, unspecified; I25.10 Atherosclerotic heart disease of native coronary artery without angina pectoris; G47.30 Sleep apnea, unspecified; G89.29 Other chronic pain; D69.6 Thrombocytopenia, unspecified; F32.9 Major depressive disorder, single episode, unspecified; Z95.5 Presence of coronary angioplasty implant and graft; Z88.8 Allergy status to other drugs, medicaments and biological substances; Z79.899 Other long term (current) drug therapy; Z88.1 Allergy status to other antibiotic agents; Z90.5 Acquired absence of kidney; Z86.73 Personal history of transient ischemic attack (TIA), and cerebral infarction without residual deficits; Z87.891 Personal history of nicotine dependence
CPT/HCPCS: 36415; 80053; 83605; 85007; 85027; 86140; 87040 ×2; 96365; 99284; J0696; J7030; 71046; 71046-26; 80202; 83735; 85025; 85610; 94640; 94667; 94668; 94761; A9270-GY; C1729; J3370; J3475; J7040; J7050; J7120; P9047